=== PATIENT | male | born 1960 | race Caucasian/White ===

== ENCOUNTER 2020-09-26 05:36 | Observation (INO) | payer OTHER ==
[2020-09-24 10:17] LABS: BASOPHILS # (AUTO) 0.1 (0.0-0.1); BASOPHILS % 1.1 % (0.0-1.0); EOSINOPHILS # (AUTO) 0.5 (0.0-0.4); EOSINOPHILS % 7.7 % (0.0-6.0); HEMATOCRIT 44.9 % (38.2-49.6); LYMPHOCYTES # (AUTO) 1.7 (1.0-3.2); LYMPHOCYTES % 25.1 % (18.0-39.1); MEAN CORPUSCULAR HEMOGLOBIN 30.7 pg (28-32); MEAN CORPUSCULAR HGB CONC 33.4 g/dL (31-35); MONOCYTES # (AUTO) 0.6 (0.2-0.8); MONOCYTES % 9.1 % (4.4-11.3); NEUTROPHILS # (AUTO) 3.8 (2.1-6.9); NEUTROPHILS % 56.7 % (38.7-80.0); PLATELET COUNT 356 x10e3/uL (140-360); RED BLOOD COUNT 4.88 x10e6/uL (4.3-5.7); RED CELL DISTRIBUTION WIDTH 13.9 % (11.7-14.4)
[2020-09-24 10:35] LABS: ANION GAP 14.4 mmol/L (8-16); BLOOD UREA NITROGEN 13 mg/dL (7-26); BUN/CREATININE RATIO 12 (6-25); CALCIUM 9.7 mg/dL (8.4-10.2); CARBON DIOXIDE 25 mmol/L (22-29); CHLORIDE 102 mmol/L (98-107); CREATININE, SERUM 1.09 mg/dL (0.72-1.25); EST GLOMERULAR FILTRATION RATE > 60 ML/MIN (60-); GLUCOSE 97 mg/dL (74-118); INR 0.85; POTASSIUM 4.4 mmol/L (3.5-5.1); PROTHROMBIN TIME 12.2 seconds (11.9-14.5); SODIUM 137 mmol/L (136-145)
[2020-09-24 10:36] LABS: PARTIAL THROMBOPLASTIN TIME 29.9 seconds (23.8-35.5)
[~2020-09-26] VITALS: Ht 170.2 cm; Wt 63.5 kg
[~2020-09-26 05:36] MED LIST: TYLENOL #4 PO
[2020-09-26] MEDS ORDERED: CEFAZOLIN SOD 1 GM/NS 50ML 50 ML IV ONE (06:38)
[2020-09-26] MEDS ORDERED: THROMBIN FOR SOLN 5,000 UNIT VIAL ONE (06:42)
[2020-09-26] MEDS ORDERED: BUPIVACAINE 0.5%/EPI 30 ML SDV INJ ONE (06:42)
[2020-09-26] MEDS ORDERED: VANCOMYCIN HCL 1 GM VIAL ONE (06:42)
[2020-09-26] MEDS ORDERED: ACETAMINOPHEN 1000 MG/100 ML 100 ML IV ONE (07:28)
[2020-09-26] MEDS ORDERED: HYDROCODON-ACE1 EA12 PO (08:49)
[2020-09-26] MEDS ORDERED: PROMETHAZINE HCL (IM) 25 MG/ML VIAL IM PRN (09:00)
[2020-09-26] MEDS: LACTATED RINGER'S 1,000 ML IV SCH ×3 (09:00→17:20)
[2020-09-26] MEDS ORDERED: ZOLPIDEM TARTRATE 5 MG TAB PO PRN (09:00)
[2020-09-26] MEDS ORDERED: HYDROMORPHONE 2MG/ML 2 MG/ML ML IV PRN (09:00)
[2020-09-26] MEDS ORDERED: MORPHINE SULFATE 5 MG/ML VIAL IM PRN (09:00)
[2020-09-26] MEDS ORDERED: ONDANSETRON HCL INJ 2MG/ML 2ML 2 MG/ML VIAL IV PRN (09:00)
[2020-09-26] MEDS ORDERED: ACETAMINOPHEN 325 MG TAB PO PRN (09:00)
[2020-09-26] MEDS ORDERED: HYDROMORPHONE 2MG/ML 2 MG/ML ML ONE (09:11)
[2020-09-26] MEDS ORDERED: CARISOPRODOL 350 MG TAB ONE (10:06)
[2020-09-26] MEDS: OXYCODONE/ACETAMINOPHEN 5-325 1 EACH TABLET PO PRN ×3 (10:10→19:12)
[2020-09-26] MEDS ORDERED: OXYCODONE/ACETAMINOPHEN 5-325 1 EACH TABLET ONE (10:14)
[2020-09-26 11:58] VITALS: BP 159/93
[2020-09-26 12:12] VITALS: BP 159/93
[2020-09-26 12:21] VITALS: BP 159/93
[2020-09-26] MEDS ORDERED: NICOTINE 14 MG/EA PATCH ONE (13:05)
[2020-09-26] MEDS ORDERED: NEOSTIGMINE 1 MG/ML 10ML VIAL ONE (13:17)
[2020-09-26] MEDS ORDERED: ONDANSETRON HCL INJ 2MG/ML 2ML 2 MG/ML VIAL ONE (13:17)
[2020-09-26] MEDS ORDERED: DEXAMETHASONE SOD PHOS INJ 4 MG/ML VIAL ONE (13:17)
[2020-09-26] MEDS ORDERED: GLYCOPYRROLATE INJ 0.2 MG/ML VIAL ONE (13:17)
[2020-09-26] MEDS ORDERED: PROPOFOL IV EMULSION 10 MG/ML 20 ML VIAL ONE (13:17)
[2020-09-26] MEDS ORDERED: ROCURONIUM BROMIDE 10 MG/ML 5ML VIAL IV ONE (13:17)
[2020-09-26] MEDS ORDERED: LIDOCAINE HCL 2% LOCAL INJ 5 ML SDV VIAL INJ ONE (13:17)
[2020-09-26] MEDS ORDERED: POVIDONE IODINE 0.05% 0.05 % ML PO ONE (13:17)
[2020-09-26] MEDS ORDERED: DESFLURANE 240 ML BTL INH ONE (13:17)
[2020-09-26] MEDS ORDERED: MORPHINE SULFATE INJ 4 MG/ML INJ 1ML IM PRN (13:45)
[2020-09-26] MEDS: CARISOPRODOL 350 MG TAB PO PRN ×2 (15:01→19:12)
[2020-09-26 16:13] VITALS: BP 155/89
[2020-09-26] MEDS: MAGNESIUM/ALUMINUM/SIMETHICONE 30 ML UDC PO PRN (16:28)
[2020-09-26] MEDS: CEFAZOLIN SOD 1 GM/NS 50ML 50 ML IV SCH (16:34)
[2020-09-26 20:00] VITALS: BP 133/86
[2020-09-26] MEDS: HYDROXYZINE HCL 25 MG TAB PO PRN (20:47)
[2020-09-26 21:16] VITALS: BP 133/86
[2020-09-27] VITALS: BP 130/79
[2020-09-27] MEDS: CEFAZOLIN SOD 1 GM/NS 50ML 50 ML IV SCH ×2 (00:21→07:13)
[2020-09-27] MEDS: LACTATED RINGER'S 1,000 ML IV SCH (01:40)
[2020-09-27] MEDS: OXYCODONE/ACETAMINOPHEN 5-325 1 EACH TABLET PO PRN ×2 (02:57→07:13)
[2020-09-27] MEDS: CARISOPRODOL 350 MG TAB PO PRN ×2 (02:58→07:13)
[2020-09-27 04:00] VITALS: BP 134/86
[2020-09-27 07:37] VITALS: BP 111/73
[2020-09-27 07:38] VITALS: BP 146/72
[2020-09-27 07:43] VITALS: BP 111/73
[2020-09-27] MEDS ORDERED: ONDANSETRON HCL 4 MG ORAL DISINTEGRATING TAB PO PRN (08:00)
[2020-09-27] MEDS: MAGNESIUM/ALUMINUM/SIMETHICONE 30 ML UDC PO PRN (08:05)
[2020-09-27] MEDS ORDERED: NICOTINE 14 MG/EA PATCH TOP SCH (09:00)
== END 2020-09-27 09:00 | disposition home or self-care (01) ==
LOC: OR 05:36 → PACU V 08:48 → MED/SURG 11:51
PROVIDERS: ADMIT Neurological Surgery; ATTEND Neurological Surgery
DX: M51.16 Intervertebral disc disorders with radiculopathy, lumbar region (principal); Z20.822 Contact with and (suspected) exposure to COVID-19; Z01.818 Encounter for other preprocedural examination
CPT/HCPCS: 36415; 63056; 71046; 72020; 80048; 85025; 85610; 85730; 86850; 86900; 88304; 93005; G0378 ×2; J0131; J0690 ×2; J1100; J1170; J2001; J2405; J2704; J2710; J3370; J3410; J7121; U0002; 88311

== ENCOUNTER → 2020-12-05 | Day surgery (SDC) | payer BC ==
[2020-12-03 10:18] LABS: BASOPHILS # (AUTO) 0.1 (0.0-0.1); BASOPHILS % 0.9 % (0.0-1.0); EOSINOPHILS # (AUTO) 0.4 (0.0-0.4); EOSINOPHILS % 4.7 % (0.0-6.0); HEMATOCRIT 43.5 % (38.2-49.6); HEMOGLOBIN 14.3 g/dL (14.0-18.0); LYMPHOCYTES # (AUTO) 1.5 (1.0-3.2); LYMPHOCYTES % 19.7 % (18.0-39.1); MEAN CORPUSCULAR HEMOGLOBIN 30.8 pg (28-32); MEAN CORPUSCULAR HGB CONC 32.9 g/dL (31-35); MEAN CORPUSCULAR VOLUME 93.5 fL (81-99); MONOCYTES # (AUTO) 0.6 (0.2-0.8); NEUTROPHILS % 66.4 % (38.7-80.0); PLATELET COUNT 313 x10e3/uL (140-360); RED BLOOD COUNT 4.65 x10e6/uL (4.3-5.7); RED CELL DISTRIBUTION WIDTH 14.6 % (11.7-14.4)
[2020-12-03 10:37] LABS: INR 0.87; PROTHROMBIN TIME 12.4 seconds (11.9-14.5)
[2020-12-03 10:47] LABS: ALBUMIN/GLOBULIN RATIO 1.1 (0.8-2.0); ANION GAP 17.2 mmol/L (8-16); CALCIUM 9.4 mg/dL (8.4-10.2); CREATININE, SERUM 1.27 mg/dL (0.72-1.25); POTASSIUM 4.2 mmol/L (3.5-5.1)
[~2020-12-05] VITALS: Ht 170.2 cm; Wt 68.0 kg
[2020-12-05] VITALS (15 sets, daily range): BP systolic 110–187; BP diastolic 68–123
[~2020-12-05] MED LIST changes: +ALPRAZOLAM 0.5 MG TAB ONE; +DIPHENHYDRAMINE HCL INJ 50 MG/ML VIAL ONE; +DONNATAL/LIDOCAINE/MAALOX 30 ML SUSP PO ONE; +FAMOTIDINE 20 MG/2 ML VIAL IV ONE; +FENTANYL CITRATE/PF 100MCG/2 ML INJ ONE; +HEPARIN SOD/SOD CHLORIDE 2,000 ML ONE; +HYDRALAZINE HCL 20 MG/ML VIAL ONE; +HYDROCODON-ACE1 EA12 PO; +IOPAMIDOL 370 MG/ML 200 ML INFUS..BTL INJ ONE; +LIDOCAINE HCL 2% LOCAL 20 ML VIAL ONE; +MIDAZOLAM HCL 2 MG/2 ML VIAL ONE; +MORPHINE SULFATE INJ 4 MG/ML INJ 1ML ONE; +SODIUM CHLORIDE 0.9% 1000ML 1,000 ML ONE; +SODIUM CHLORIDE 0.9% 500ML 500 ML ONE; +VERAPAMIL HCL 2.5 MG/ML 2 ML VIAL ONE
== END | disposition home or self-care (01) ==
LOC: CATH LAB 08:36
PROVIDERS: ATTEND Internal Medicine Cardiovascular Disease
DX: I25.10 Atherosclerotic heart disease of native coronary artery without angina pectoris (principal); I25.42 Coronary artery dissection; I25.82 Chronic total occlusion of coronary artery; I73.9 Peripheral vascular disease, unspecified
CPT/HCPCS: 36415; 80053; 85025; 85347; 85610; 92920; 93458; C1766; C1769 ×4; C1887; J0360; J1200; J2001; J2250; J2270; J3010; J7030; J7040; Q9967; 76937; 93454; 99152; 99153

== ENCOUNTER → 2021-08-28 | Outpatient (RCR) | payer BC ==
[~2021-08-28] MED LIST changes: -ALPRAZOLAM 0.5 MG TAB ONE; -DIPHENHYDRAMINE HCL INJ 50 MG/ML VIAL ONE; -DONNATAL/LIDOCAINE/MAALOX 30 ML SUSP PO ONE; -FAMOTIDINE 20 MG/2 ML VIAL IV ONE; -FENTANYL CITRATE/PF 100MCG/2 ML INJ ONE; -HEPARIN SOD/SOD CHLORIDE 2,000 ML ONE; -HYDRALAZINE HCL 20 MG/ML VIAL ONE; -IOPAMIDOL 370 MG/ML 200 ML INFUS..BTL INJ ONE; -LIDOCAINE HCL 2% LOCAL 20 ML VIAL ONE; -MIDAZOLAM HCL 2 MG/2 ML VIAL ONE; -MORPHINE SULFATE INJ 4 MG/ML INJ 1ML ONE; -SODIUM CHLORIDE 0.9% 1000ML 1,000 ML ONE; -SODIUM CHLORIDE 0.9% 500ML 500 ML ONE; -VERAPAMIL HCL 2.5 MG/ML 2 ML VIAL ONE
== END ==
LOC: PT 09:15
PROVIDERS: ATTEND Family Medicine
DX: M51.26 Other intervertebral disc displacement, lumbar region (principal); Z98.890 Other specified postprocedural states; M47.26 Other spondylosis with radiculopathy, lumbar region

== ENCOUNTER 2021-09-11 12:55 | Outpatient (RCR) | payer BC | END 2021-09-27 | LOC: PT 12:55 | PROVIDERS: ATTEND Family Medicine | DX: M51.26 Other intervertebral disc displacement, lumbar region (principal); Z98.890 Other specified postprocedural states; M47.26 Other spondylosis with radiculopathy, lumbar region ==